=== PATIENT | male | born 1965 ===

== ENCOUNTER 2023-05-24 17:46 | Emergency (ER) | payer BC, SELFPAY ==
[2023-05-24 17:48] VITALS: BP 142/77; PULSE 80; RESP 14; TEMP 36.7; O2SAT 98
--- NOTE | 2023-05-24 18:01 | ED.BURNSMOKE ---
HPI - Burn/Smoke Inhalation General Chief complaint: Burn/Smoke Inhalation Stated complaint: spilled coffee on bilateral hands Time Seen by Provider: 05/24/23 17:54 Source: patient Mode of arrival: ambulatory Limitations: no limitations History of Present Illness HPI Narrative: This is a 58-year-old male that presents to the emergency department for hand holliday. Reports he got a couple coffee and he did not feel like the lid was on right. He tried to pick it up and it spilled all over him. Reports burning sensation, largely to his bilateral pinkies. Denies any notable skin lesion. Related Data Allergies Allergy/AdvReac Type Severity Reaction Status Date / Time No Known Allergies Allergy Verified 05/24/23 17:47 Review of Systems Review of Systems: CONSTITUTIONAL: Denies fever SKIN: Reports burning All systems reviewed & are unremarkable except as noted in HPI and below PMFSH Past Medical History Medical History (Updated 05/24/23 @ 18:04 by Paris Alonzo PA-C) No active medical problems Social History Social History (Updated 05/24/23 @ 18:04 by Paris Alonzo PA-C) Smoking status: Never smoker Exam Narrative: GENERAL: Well-appearing, well-nourished, and in no acute distress. HEAD: Normocephalic, atraumatic. EYES: EOMI. EXTREMITIES: Normal range of motion. No edema or erythema. No notable burn injury SKIN: Warm, dry, no rash. NEURO: No focal deficits. Alert and oriented x3. PSYCH: Normal mood and affect Course Course Emergency Course: Patient agrees with plan of care Vital Signs Vital signs: Vital Signs Temperature 98.0 F 05/24/23 17:48 Pulse Rate 80 05/24/23 17:48 Respiratory Rate 14 05/24/23 17:48 Blood Pressure 142/77 H 05/24/23 17:48 Pulse Oximetry 98 05/24/23 17:48 Temperature 98.0 F 05/24/23 17:48 Pulse Rate 80 05/24/23 17:48 Respiratory Rate 14 05/24/23 17:48 Blood Pressure 142/77 H 05/24/23 17:48 Pulse Oximetry 98 05/24/23 17:48 MDM - Burn/Smoke Inhalation MDM Narrative Medical decision making narrative: Patient presents to the emergency department after having hot coffee spilled on his hands. There is no visible holliday on the hands. Instructed to keep his hands clean with mild soap and water and apply antibiotic ointment or Vaseline to the areas of discomfort. He is to follow-up with primary care provider as needed. He was given warnings to return to the ER Differential Diagnosis Differential diagnosis: Likely other (Superficial burn) Critical Care Time Critical Care Time Critical Care Time: No Discharge Plan Discharge Clinical Impression: Hand injury Qualifiers: Encounter type: initial encounter Laterality: unspecified laterality Qualified Code(s): S69.90XA - Unspecified injury of unspecified wrist, hand and finger(s), initial encounter Patient Disposition: Home, Self-Care Condition: Stable Instructions: Superficial Burn (ED) Additional Instructions: Return to the emergency department if you experience fever, redness or swelling of your wound, abnormal drainage from your wound, or any other symptoms that are concerning to you. Apply antibiotic ointment daily. Do not soak the wound. Clean with mild soap and water daily Follow-up with your primary care doctor if needed Follow-up/Referrals: UNKNOWN,DOCTOR [Primary Care Provider] -
== END 2023-05-24 18:25 | disposition home or self-care (01) ==
PROVIDERS: Emergency Provider Physician Assistant
DX: S69.92XA Unspecified injury of left wrist, hand and finger(s), initial encounter (principal); S69.91XA Unspecified injury of right wrist, hand and finger(s), initial encounter; X10.0XXA Contact with hot drinks, initial encounter
CPT/HCPCS: 99282

== ENCOUNTER 2023-09-19 02:50 | Emergency (ER) | payer BC, SELFPAY ==
[2023-09-19] VITALS (39 sets, daily range): BP systolic 130–146; BP diastolic 72–80; PULSE 71–102; RESP 14–26; TEMP 36.4; O2SAT 96–100
--- NOTE | ~2023-09-19 | XR_ITS ---
EXAMINATION: XR chest 1V portable DATE: 09/19/2023 04:17 INDICATION: Nausea and syncope TECHNIQUE: frontal view of the chest was obtained. COMPARISON: None FINDINGS: The lungs are clear with no focal airspace opacities, pulmonary edema, pleural effusion or pneumothor ax. The cardiomediastinal silhouette is normal. Visualized bones and soft tissues are unremarkable. IMPRESSION: 1. No acute cardiopulmonary disease. Reviewed, dictated and finalized at location A. [employer]
--- NOTE | 2023-09-19 02:51 | ECG_ITS ---
Measurements Intervals [place] Rate: 74 P: 61 AL: 162 QRS: 17 QRSD: 91 T: 48 QT: 356 QTc: 395 Interpretive Statements SINUS RHYTHM NORMAL ELECTROCARDIOGRAM NO PREVIOUS ECG AVAILABLE FOR COMPARISON Electronically Signed On 09-19-2023 8:30:18 [employer] by Dalton Galarza M.D.
--- NOTE | 2023-09-19 03:16 | PC.NURSE ---
While patient was in triage and getting blood work and an EKG patient began to vomit and appeared to have a syncopal episode. EDCN notified and patient was taken back to a room right away.
[2023-09-19 03:27] LABS: Basophils Percent Auto 0.2 % (0.2-1.2); Eosinophils Absolute Auto 0.1 K/mm3 (0-0.3); Eosinophils Percent Auto 0.7 % (0-4.4); Hematocrit 50.1 % (42.0-52.0); Hemoglobin 15.3 g/dL (14.0-18.0); Immature Granulocyte Absolute 0.04 K/mm3 (0.00-0.031); Immature Granulocyte Percent A 0.3 % (0-0.5); Lymphocytes Absolute Auto 1.03 K/mm3 (0.9-3.2); Lymphocytes Percent Auto 8.5 % (18.3-44.2); Mean Corpuscular HGB Conc 30.5 g/dl (32-36); Mean Corpuscular Hemoglobin 26.1 pg (26-34); Mean Corpuscular Volume 85.5 fl (80-100); Monocytes Absolute Auto 0.6 K/mm3 (0.1-0.6); Monocytes Percent Auto 5.2 % (2.6-8.5); Neutrophils Absolute Auto 10.3 K/mm3 (1.3-6.7); Neutrophils Percent Auto 85.1 % (45.5-73.1); Platelet Count Result 329 k/mm3 (150-375); Red Blood Count 5.86 M/mm3 (4.6-6.20); Red Cell Distribution Width 15.9 % (11.5-14.5); White Blood Count 12.1 K/mm3 (4.5-10.0)
[2023-09-19] MEDS: SODIUM CHLORIDE 0.9% IV 1,000 ML 999 ML IV CONT (03:55)
[2023-09-19] MEDS: FAMOTIDINE 20 MG/2 ML VIAL IV PUSH (04:01)
[2023-09-19] MEDS: ONDANSETRON INJ 4 MG/2 ML VIAL IV PUSH (04:01)
[2023-09-19] MEDS: KETOROLAC 15 MG/ML VIAL (*BKC) IV PUSH (04:01)
[2023-09-19 04:12] LABS: Alanine Aminotransferase 65 U/L (6-50); Albumin Level 4.9 g/dL (3.5-5.1); Alkaline Phosphatase 90 U/L (38-126); Anion Gap 8 mmol/L (8-16); Aspartate Amino Transferase 63 U/L (17-59); Bilirubin,Total 1.2 mg/dL (0.2-1.3); Blood Urea Nitrogen 17 mg/dL (9-20); Calcium 9.9 mg/dL (8.4-10.2); Carbon Dioxide 28 mmol/L (22-30); Chloride 104 mmol/L (98-107); Estimated CRCL calculation 61 ml/min; Estimated Glomerular Filt Rate > 60; Glucose 114 mg/dL (65-110); Potassium 4.1 mmol/L (3.4-5.0); Sodium 140 mmol/L (137-145)
[2023-09-19 04:32] LABS: INR 0.9; Prothrombin Time 12.4 Seconds (11.1-14.7)
[2023-09-19 04:34] LABS: Partial Thromboplastin Time 29.4 SECONDS (22.3-36.8)
--- NOTE | 2023-09-19 05:00 | ED.GENADULT ---
HPI - General Adult General Chief complaint: Syncope <Jr Fam MD - Last Filed: 09/19/23 06:09> Stated complaint: vomiting, fall, syncope <Jr Fam MD - Last Filed: 09/19/23 06:09> Time Seen by Provider: 09/19/23 03:41 <Jr Fam MD - Last Filed: 09/19/23 06:09> History of Present Illness HPI narrative: this is a 58-year-old male presenting ED with chief complaint of nausea vomiting. Patient has nausea vomiting throughout the day today. During 1 episode he pass out in his bathroom. His found slightly confused. He notes he has having subjective fever and chills. No chest pain difficulty breathing. Some epigastric abdominal discomfort. No diarrhea. 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 <Jr Fam MD - Last Filed: 09/19/23 06:09> This is a 58-year-old male presenting ED with chief complaint of nausea vomiting. Patient has nausea vomiting throughout the day today. During 1 episode he pass out in his bathroom. His found slightly confused. He notes he has having subjective fever and chills. No chest pain difficulty breathing. Some epigastric abdominal discomfort. No diarrhea. 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 <Stpehanie Collins MD - Last Filed: 09/19/23 09:46> Related Data Allergies/adverse reactions: Allergies Allergy/AdvReac Type Severity Reaction Status Date / Time No Known Allergies Allergy Verified 09/19/23 03:13 <Jr Fam MD - Last Filed: 09/19/23 06:09> [facility] Past Medical History Medical History: Medical History No active medical problems <Jr Fam MD - Last Filed: 09/19/23 06:09> Social History Social History: Social History Smoking status: Never smoker <Jr Fam MD - Last Filed: 09/19/23 06:09> Exam Narrative: APPEARANCE: No apparent distress. Head: atraumatic. EYES: EOMI, NOSE: Atraumatic NECK: Trachea midline RESPIRATORY: No increased rate of breathing Clear to auscultation CARDIOVASCULAR: RRR, no peripheral edema ABDOMINAL: Non-distended, soft nontender MUSCULOSKELETAl: No obvious deformities NEURO: Alert. Moving 4/4 extremities SKIN:: Warm, dry. Normal color PSYCHIATRIC: Normal affect <Jr Fam MD - Last Filed: 09/19/23 06:09> Course Vital Signs Vital signs: Vital Signs Temperature 97.5 F L 09/19/23 02:53 Pulse Rate 80 09/19/23 02:53 Respiratory Rate 14 09/19/23 02:53 Blood Pressure 138/78 09/19/23 02:53 Pulse Oximetry 100 09/19/23 02:53 Oxygen Delivery Room Air 09/19/23 02:53 Temperature 97.5 F L 09/19/23 02:53 Pulse Rate 90 09/19/23 07:56 Respiratory Rate 26 H 09/19/23 07:56 Blood Pressure 134/76 09/19/23 07:56 Pulse Oximetry 100 09/19/23 07:56 Oxygen Delivery Room Air 09/19/23 03:14 <Jr Fam MD - Last Filed: 09/19/23 06:09> Vital Signs Temperature 97.5 F L 09/19/23 02:53 Pulse Rate 80 09/19/23 02:53 Respiratory Rate 14 09/19/23 02:53 Blood Pressure 138/78 09/19/23 02:53 Pulse Oximetry 100 09/19/23 02:53 Oxygen Delivery Room Air 09/19/23 02:53 Temperature 97.5 F L 09/19/23 02:53 Pulse Rate 90 09/19/23 07:56 Respiratory Rate 26 H 09/19/23 07:56 Blood Pressure 134/76 09/19/23 07:56 Pulse Oximetry 100 09/19/23 07:56 Oxygen Delivery Room Air 09/19/23 03:14 <Stephanie Collins MD - Last Filed: 09/19/23 09:46> Medical Decision Making MDM Narrative Medical decision making narrative: -Course: 58-year-old male presenting with nausea and vomiting and episode of syncope. initial workup largely unremarkable. Patient signed out to oncoming physician pending 2nd troponin and improvement in nausea. -DDX includes but is not limited to: Gastroenteritis, viral syndrome, gastritis, ACS
[2023-09-19 05:01] LABS: Influenza A QL RT-PCR Negative (Negative); Influenza B QL RT-PCR Negative (Negative); RSV RNA, RT-PCR Negative (Negative); SARS-CoV-2 RNA PCR Negative (Negative)
--- NOTE | 2023-09-19 05:09 | PC.NURSE ---
Patient given water and crackers for PO challenge.
--- NOTE | 2023-09-19 05:09 | PC.NURSE ---
Patient given water and crackers for PO challenge. Patient stated she is still nauseous. ERP notified.
[2023-09-19 05:54] LABS: NT Pro B Type Natriuretic Pept < 20 pg/mL (19.9-100); Troponin I 0.034 ng/mL (0.000-0.034)
[2023-09-19 07:05] LABS: Appearance Urine Clear (Clear); Bilirubin Urine Negative (Negative); Blood Urine Negative (Negative); Color Urine Yellow (Yellow); Glucose Urine UA Negative (Negative); Ketones Urine Negative (Negative); Leukocyte Esterase Ur Negative LEU/UL (Negative); Nitrate Urine Negative (Negative); Protein Urine Negative (Negative); Specific Grav Ur 1.017 (1.001-1.035); pH Urine 8.5 (5.0-9.0)
[2023-09-19 07:29] LABS: Add Urine Microscopic? NO
--- NOTE | 2023-09-19 07:56 | PC.NURSE ---
patient tolerated PO challenge and feels a little better
== END 2023-09-19 10:06 | disposition home or self-care (01) ==
PROVIDERS: Emergency Medicine; Emergency Provider Emergency Medicine
DX: R11.2 Nausea with vomiting, unspecified (principal); Z20.822 Contact with and (suspected) exposure to COVID-19
CPT/HCPCS: 36415; 71045; 80053; 81003; 83735; 83880; 84484; 85025; 85610; 85730; 87637; 93005; 96361; 96374; 96375; 99284; J1885; J2405; J7030